=== PATIENT | male | born 1965 | race African-American/Black ===

== ENCOUNTER 2020-07-31 11:36 | Inpatient (IN) | payer OTHER ==
--- NOTE | 2020-07-31 12:12 | BHS.RME ---
Substance Use & Tx History - Substance Use History Alcohol Substance amount: 6 pack x 24 ounce cans Frequency of use: Daily Substance route: Oral Date of Last Use: 07/29/20 Cocaine-Crack Substance amount: $100 Frequency of use: Daily Substance route: Smoking Date of Last Use: 07/30/20 Nicotine Substance amount: 1/2 pack Frequency of use: Daily Substance route: Smoking Date of Last Use: 07/31/20 - Last Treatment Date of last treatment: 2013 Where was last treatment: Detox Physical/Psych/Mental Status - Behavior General Behavior: Increased activity (restlessness, agitation) Eye Contact: Normal - Cooperativeness Cooperativeness: Cooperative - Thinking Thought Processes: Tight Thought content: Future oriented - Physical Health Problems Is patient presently having any pain?: No Does patient presently have any injuries (include location): No Does patient currently have a fever: No CIWA Nausea/Vomitin-Mild Nausea/No Vomiting Muscle Tremors: 3 Anxiety: 3 Agitation: 3 Paroxysmal Sweats: 2 Orientation: 0-Oriented Tacttile Disturbances: 0-None Auditory Disturbances: 0-None Visual Disturbances: 0-None Headache: 0-None Present CIWA-Ar Total Score: 12
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
[2020-07-31 12:33] VITALS: BMI 16.7
[2020-07-31] MEDS ORDERED: METHOCARBAMOL 500 MG TABLET PO PRN (12:36)
[2020-07-31] MEDS ORDERED: MENTHOL/PHENOL 1 EACH UD MM PRN (12:36)
[2020-07-31] MEDS ORDERED: MAGNESIUM HYDROX 2400MG/30ML ORAL SUSPENSION 30 ML CUP PO PRN (12:36)
[2020-07-31] MEDS ORDERED: BISMUTH SUBSALICYLATE 524 MG/30 ML UD PO PRN (12:36)
[2020-07-31] MEDS ORDERED: ONDANSETRON *ODT* 4 MG TABLET SL PRN (12:36)
[2020-07-31] MEDS ORDERED: chlordiazePOXIDE HCL 25 MG CAPSULE PO PRN (12:36)
[2020-07-31] MEDS ORDERED: ACETAMINOPHEN 325 MG TABLET (FP) PO PRN ×2 (12:36)
[2020-07-31] MEDS ORDERED: MAG HYDROX/AL HYDROX/SIMETH 30 ML UNIT-DOSE CUP PO PRN (12:36)
[2020-07-31] MEDS ORDERED: NICOTINE POLACRILEX 2 MG GUM BUC PRN (12:36)
[2020-07-31] MEDS ORDERED: IBUPROFEN 400 MG TABLET (FP) PO PRN (12:36)
[2020-07-31] MEDS ORDERED: MAGNESIUM CITRATE 300 ML BOTTLE PO PRN (12:36)
[2020-07-31] MEDS: PRENATAL VITAMINS W/ FOLIC ACID TABLET (FP) PO SCH (14:19)
[2020-07-31] MEDS: NICOTINE 7 MG/24 HOURS TOPICAL PATCH TD SCH (14:19)
[2020-07-31] MEDS: chlordiazePOXIDE HCL 25 MG CAPSULE PO SCH ×3 (14:19→22:28)
[2020-07-31] MEDS: hydrOXYzine PAMOATE 25 MG CAPSULE (FP) PO SCH ×3 (14:20→22:28)
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
[2020-07-31] MEDS ORDERED: QUEtiapine FUMARATE 50 MG TABLET ONE (21:12)
[2020-07-31] MEDS ORDERED: QUEtiapine FUMARATE 200 MG TABLET ONE (21:12)
[2020-07-31] MEDS ORDERED: QUETIAPINE FUMARATE 200 MG, QUETIAPINE FUMARATE 50 MG PO SCH (22:00)
[2020-07-31] MEDS ORDERED: QUEtiapine FUMARATE 200 MG TABLET PO SCH ×2 (22:00)
[2020-07-31] MEDS: MELATONIN 5 MG TABLETS PO SCH (22:28)
[2020-07-31] MEDS: MIRTAZAPINE 15 MG TABLET (FP) PO SCH (22:28)
[2020-07-31] MEDS: THIAMINE HCL 100 MG TABLET (FP) PO SCH (22:28)
[2020-08-01] MEDS: hydrOXYzine PAMOATE 25 MG CAPSULE (FP) PO SCH ×3 (06:24→14:39)
[2020-08-01] MEDS: chlordiazePOXIDE HCL 25 MG CAPSULE PO SCH ×4 (06:24→22:38)
[2020-08-01 10:15] LABS: HEMATOCRIT 41.7 % (35.4-49); HEMOGLOBIN 13.7 GM/dL (11.7-16.9); MCHC 32.7 g/dl (32.0-35.9); MEAN CELL VOLUME 88.7 fl (80-96); MEAN PLT VOLUME 7.8 fl (7.5-11.1); PLATELET COUNT 132 K/MM3 (134-434); RDW 14.2 % (11.9-15.9); WHITE BLOOD COUNT 3.6 K/mm3 (4.0-10.0)
--- NOTE | 2020-08-01 10:18 | PN ---
S CIWA - CIWA Score Nausea/Vomitin-No Nausea/No Vomiting Muscle Tremors: 1-None Visible, but [place] Anxiety: 1-Mildly Anxious Agitation: 1-Slight > Activity Paroxysmal Sweats: No Perspiration Orientation: 0-Oriented Tacttile Disturbances: 1-Very Mild Itch/Numbness Auditory Disturbances: 0-None Visual Disturbances: 0-None Headache: 2-Mild CIWA-Ar Total Score: 6 BHS Progress Note (SOAP) Subjective: alert,feel weak,tired and weak,poor appetite,anxious Objective: 08/01/20 13:00 Vital Signs Temperature 97.9 F 08/01/20 08:39 Pulse Rate 58 L 08/01/20 08:39 Respiratory Rate 18 08/01/20 08:39 Blood Pressure 104/71 08/01/20 08:39 O2 Sat by Pulse Oximetry (%) 97 08/01/20 06:40 08/01/20 13:00 Laboratory Last Values WBC 3.6 K/mm3 (4.0-10.0) L 08/01/20 07:00 RBC 4.70 M/mm3 (4.00-5.60) 08/01/20 07:00 Hgb 13.7 GM/dL (11.7-16.9) 08/01/20 07:00 Hct 41.7 % (35.4-49) D 08/01/20 07:00 MCV 88.7 fl (80-96) 08/01/20 07:00 MCH 29.0 pg (25.7-33.7) 08/01/20 07:00 MCHC 32.7 g/dl (32.0-35.9) 08/01/20 07:00 RDW 14.2 % (11.9-15.9) 08/01/20 07:00 Plt Count 132 K/MM3 (134-434) L D 08/01/20 07:00 MPV 7.8 fl (7.5-11.1) D 08/01/20 07:00 Sodium 142 mmol/L (136-145) 08/01/20 07:00 Potassium 4.1 mmol/L (3.5-5.1) 08/01/20 07:00 Chloride 113 mmol/L (98-107) H 08/01/20 07:00 Carbon Dioxide 23 mmol/L (21-32) 08/01/20 07:00 Anion Gap 5 MMOL/L (8-16) L 08/01/20 07:00 BUN 24.9 mg/dL (7-18) H 08/01/20 07:00 Creatinine 1.7 mg/dL (0.55-1.3) H 08/01/20 07:00 Est GFR (CKD-EPI)AfAm 51.11 08/01/20 07:00 Est GFR (CKD-EPI)NonAf 44.10 08/01/20 07:00 POC Glucometer 199 UNITS (80-120) 08/01/20 06:34 Random Glucose 185 mg/dL (74-106) H 08/01/20 07:00 Calcium 9.0 mg/dL (8.5-10.1) 08/01/20 07:00 Total Bilirubin 0.4 mg/dL (0.2-1) 08/01/20 07:00 AST 35 U/L (15-37) 08/01/20 07:00 ALT 50 U/L (13-61) 08/01/20 07:00 Alkaline Phosphatase 122 U/L (45-117) H 08/01/20 07:00 Total Protein 7.1 g/dl (6.4-8.2) 08/01/20 07:00 Albumin 3.1 g/dl (3.4-5.0) L 08/01/20 07:00 Syphilis Serology Reactive (NONREACTIVE) A* 07/31/20 07:00 Assessment: 08/01/20 13:05 withdrawal symptom Plan: continue detox librium regimen,continue detox librium regimen,patient pharmacist called,patient never been on any seroquel any more, bgm monitoring ,nutritional support,close monitoring,wheelchair for ambulatory aid,will d/c seroquel
[2020-08-01 10:28] LABS: ALBUMIN 3.1 g/dl (3.4-5.0); BLOOD UREA NITROGEN 24.9 mg/dL (7-18); CREATININE 1.7 mg/dL (0.55-1.3); POTASSIUM 4.1 mmol/L (3.5-5.1)
[2020-08-01 10:31] LABS: BILIRUBIN,TOTAL 0.4 mg/dL (0.2-1); TOT PROT 7.1 g/dl (6.4-8.2)
[2020-08-01] MEDS: PRENATAL VITAMINS W/ FOLIC ACID TABLET (FP) PO SCH (10:41)
[2020-08-01] MEDS: NICOTINE 7 MG/24 HOURS TOPICAL PATCH TD SCH (10:41)
[2020-08-01] MEDS: SULFAMETHOXAZOLE/TRIMETHOPRIM 800MG/160MG D.S. TABLET PO SCH (10:42)
[2020-08-01] MEDS: MELATONIN 5 MG TABLETS PO SCH (22:38)
[2020-08-01] MEDS: THIAMINE HCL 100 MG TABLET (FP) PO SCH (22:38)
[2020-08-01] MEDS: MIRTAZAPINE 15 MG TABLET (FP) PO SCH (22:38)
[2020-08-02] MEDS: chlordiazePOXIDE HCL 25 MG CAPSULE PO SCH ×4 (06:22→22:33)
[2020-08-02] MEDS ORDERED: INSULIN (NOVOLOG) ASPART 100 UNITS/ML 10ML VIAL SQ ONE (07:09)
--- NOTE | 2020-08-02 07:16 | PN ---
[facility] Progress Note Note: Patient's blood glucose level is B/S 265mg/dl Vital Signs Temperature 97.8 F 08/02/20 05:12 Pulse Rate 60 08/02/20 05:12 Respiratory Rate 16 08/02/20 05:12 Blood Pressure 104/60 08/02/20 05:12 O2 Sat by Pulse Oximetry (%) 95 08/02/20 05:12 Glucose Results-Entire Visit 08/01/20 07:00 Random Glucose 185 mg/dL H mg/dL (74-106) BGM Results Entire Visit 07/31/20 08/01/20 08/01/20 12:57 06:34 16:26 POC Glucometer 195 UNITS UNITS 199 UNITS UNITS 190 UNITS UNITS (80-120) (80-120) (80-120) 08/01/20 08/02/20 21:04 06:47 POC Glucometer 278 UNITS UNITS 265 UNITS UNITS (80-120) (80-120) Action: Insulin Novolog 4 units SQ ordered
[2020-08-02] MEDS: DARUNAVIR 800 MG/COBICISTAT 150MG TABLET PO SCH (08:23)
[2020-08-02] MEDS: DOLUTEGRAVIR SODIUM 50 MG TABLET (NON-FORMULARY) PO SCH (08:24)
--- NOTE | 2020-08-02 09:38 | PN ---
[facility] CIWA - CIWA Score Nausea/Vomitin-Mild Nausea/No Vomiting Muscle Tremors: 2 Anxiety: 2 Agitation: 2 Paroxysmal Sweats: No Perspiration Orientation: 0-Oriented Tacttile Disturbances: 1-Very Mild Itch/Numbness Auditory Disturbances: 0-None Visual Disturbances: 0-None Headache: 2-Mild CIWA-Ar Total Score: 10 S Progress Note (SOAP) Subjective: alert,oriented x 3,pain in the body,nausea,no vomiting,interrupted sleep,aching pain Objective: 08/02/20 10:18 Vital Signs Temperature 97.1 F L 08/02/20 08:28 Pulse Rate 87 08/02/20 08:28 Respiratory Rate 18 08/02/20 08:28 Blood Pressure 117/76 08/02/20 08:28 O2 Sat by Pulse Oximetry (%) 95 08/02/20 08:28 Laboratory Last Values WBC 3.6 K/mm3 (4.0-10.0) L 08/01/20 07:00 RBC 4.70 M/mm3 (4.00-5.60) 08/01/20 07:00 Hgb 13.7 GM/dL (11.7-16.9) 08/01/20 07:00 Hct 41.7 % (35.4-49) D 08/01/20 07:00 MCV 88.7 fl (80-96) 08/01/20 07:00 MCH 29.0 pg (25.7-33.7) 08/01/20 07:00 MCHC 32.7 g/dl (32.0-35.9) 08/01/20 07:00 RDW 14.2 % (11.9-15.9) 08/01/20 07:00 Plt Count 132 K/MM3 (134-434) L D 08/01/20 07:00 MPV 7.8 fl (7.5-11.1) D 08/01/20 07:00 Sodium 142 mmol/L (136-145) 08/01/20 07:00 Potassium 4.1 mmol/L (3.5-5.1) 08/01/20 07:00 Chloride 113 mmol/L (98-107) H 08/01/20 07:00 Carbon Dioxide 23 mmol/L (21-32) 08/01/20 07:00 Anion Gap 5 MMOL/L (8-16) L 08/01/20 07:00 BUN 24.9 mg/dL (7-18) H 08/01/20 07:00 Creatinine 1.7 mg/dL (0.55-1.3) H 08/01/20 07:00 Est GFR (CKD-EPI)AfAm 51.11 08/01/20 07:00 Est GFR (CKD-EPI)NonAf 44.10 08/01/20 07:00 POC Glucometer 265 UNITS (80-120) 08/02/20 06:47 Random Glucose 185 mg/dL (74-106) H 08/01/20 07:00 Calcium 9.0 mg/dL (8.5-10.1) 08/01/20 07:00 Total Bilirubin 0.4 mg/dL (0.2-1) 08/01/20 07:00 AST 35 U/L (15-37) 08/01/20 07:00 ALT 50 U/L (13-61) 08/01/20 07:00 Alkaline Phosphatase 122 U/L (45-117) H 08/01/20 07:00 Total Protein 7.1 g/dl (6.4-8.2) 08/01/20 07:00 Albumin 3.1 g/dl (3.4-5.0) L 08/01/20 07:00 Syphilis Serology Reactive (NONREACTIVE) A* 07/31/20 07:00 RPR Titer Reactive 1:1 (NONREACTIVE) H D 07/31/20 07:00 COVID-19 ([place]) Not detected (Not Detected) 07/31/20 13:20 08/02/20 13:37 patient was treated for syphilis before in the past Assessment: 08/02/20 10:19 withdrawal symptom,continue detox librium regimen,bgm monitoring achs with insulin coverage sliding scale Plan: continue detox librium regimen,bgm monitoring with insulin coverage sliding scale
[2020-08-02] MEDS: PRENATAL VITAMINS W/ FOLIC ACID TABLET (FP) PO SCH (10:09)
[2020-08-02] MEDS: NICOTINE 7 MG/24 HOURS TOPICAL PATCH TD SCH (10:09)
[2020-08-02] MEDS: SULFAMETHOXAZOLE/TRIMETHOPRIM 800MG/160MG D.S. TABLET PO SCH (10:09)
[2020-08-02] MEDS: INSULIN (NOVOLOG) ASPART 100 UNITS/ML 10ML VIAL SQ SCH ×3 (11:47→22:33)
[2020-08-02] MEDS ORDERED: INSULIN SLIDING SCALE (NOVOLOG) 1 VIAL SQ ONE (21:28)
[2020-08-02] MEDS: MELATONIN 5 MG TABLETS PO SCH (22:32)
[2020-08-02] MEDS: MIRTAZAPINE 15 MG TABLET (FP) PO SCH (22:32)
[2020-08-02] MEDS: THIAMINE HCL 100 MG TABLET (FP) PO SCH (22:36)
[2020-08-03] MEDS ORDERED: chlordiazePOXIDE HCL 10 MG CAPSULE PO PRN
[2020-08-03] MEDS: chlordiazePOXIDE HCL 10 MG CAPSULE PO SCH ×4 (06:00→22:47)
[2020-08-03] MEDS: DARUNAVIR 800 MG/COBICISTAT 150MG TABLET PO SCH (07:41)
[2020-08-03] MEDS: INSULIN (NOVOLOG) ASPART 100 UNITS/ML 10ML VIAL SQ SCH ×4 (07:42→22:47)
[2020-08-03] MEDS: DOLUTEGRAVIR SODIUM 50 MG TABLET (NON-FORMULARY) PO SCH (07:42)
[2020-08-03] MEDS ORDERED: INSULIN SLIDING SCALE (NOVOLOG) 1 VIAL SQ ONE ×5 (07:45→22:52)
[2020-08-03] MEDS: NICOTINE 7 MG/24 HOURS TOPICAL PATCH TD SCH (10:48)
[2020-08-03] MEDS: SULFAMETHOXAZOLE/TRIMETHOPRIM 800MG/160MG D.S. TABLET PO SCH (10:48)
[2020-08-03] MEDS: PRENATAL VITAMINS W/ FOLIC ACID TABLET (FP) PO SCH (10:49)
--- NOTE | 2020-08-03 11:20 | PN ---
S CIWA - CIWA Score Nausea/Vomitin-No Nausea/No Vomiting Muscle Tremors: None Anxiety: 2 Agitation: 1-Slight > Activity Paroxysmal Sweats: 2 Orientation: 0-Oriented Tacttile Disturbances: 0-None Auditory Disturbances: 0-None Visual Disturbances: 0-None Headache: 2-Mild CIWA-Ar Total Score: 7 BHS Progress Note (SOAP) Subjective: c/o sweats, anxiety, and headache. Objective: 08/03/20 11:18 Vital Signs 08/03/20 08/03/20 07:01 08:35 Temperature 97.2 F L 97.1 F L Pulse Rate 60 66 Respiratory 18 18 Rate Blood Pressure 100/62 103/60 O2 Sat by Pulse 97 Oximetry (%) Assessment: 08/03/20 11:18 AOX3, in no acute respiratory distress. Full ROM, ambulating in the unit. Withdrawal symptoms. Plan: continue detox.
[2020-08-03] MEDS: MELATONIN 5 MG TABLETS PO SCH (22:47)
[2020-08-03] MEDS: THIAMINE HCL 100 MG TABLET (FP) PO SCH (22:47)
[2020-08-03] MEDS: MIRTAZAPINE 15 MG TABLET (FP) PO SCH (22:47)
[2020-08-04] MEDS ORDERED: chlordiazePOXIDE HCL 10 MG CAPSULE PO SCH (05:00)
[2020-08-04 06:20] VITALS: TEMP 98
[2020-08-04] MEDS: DOLUTEGRAVIR SODIUM 50 MG TABLET (NON-FORMULARY) PO SCH (07:07)
[2020-08-04] MEDS: INSULIN (NOVOLOG) ASPART 100 UNITS/ML 10ML VIAL SQ SCH ×2 (07:07→11:16)
[2020-08-04] MEDS: DARUNAVIR 800 MG/COBICISTAT 150MG TABLET PO SCH (07:07)
[2020-08-04] MEDS ORDERED: INSULIN SLIDING SCALE (NOVOLOG) 1 VIAL SQ ONE ×2 (07:45→11:16)
[2020-08-04] MEDS: SULFAMETHOXAZOLE/TRIMETHOPRIM 800MG/160MG D.S. TABLET PO SCH (10:50)
[2020-08-04] MEDS: NICOTINE 7 MG/24 HOURS TOPICAL PATCH TD SCH (10:55)
[2020-08-04] MEDS: PRENATAL VITAMINS W/ FOLIC ACID TABLET (FP) PO SCH (10:55)
--- NOTE | 2020-08-04 12:12 | PN ---
[facility] CIWA - CIWA Score Nausea/Vomitin-Mild Nausea/No Vomiting Muscle Tremors: 1-None Visible, but [place] Anxiety: 1-Mildly Anxious Agitation: 1-Slight > Activity Paroxysmal Sweats: No Perspiration Orientation: 0-Oriented Tacttile Disturbances: 0-None Auditory Disturbances: 0-None Visual Disturbances: 1-Very Mild Sensitivity Headache: 0-None Present CIWA-Ar Total Score: 5 BHS Progress Note (SOAP) Subjective: 54 years old male was admitted on 07/31/20 for alcohol withdrawal sx management treating [facility] detox regiment feels better today encourage mr monzon to discuss aftercare with staff mr monzon prefers to go to [facility] Objective: 08/04/20 13:34 Vital Signs - 24 hr 08/03/20 08/03/20 08/04/20 17:12 20:59 06:19 Temperature 97.7 F 97.1 F L 98.0 F Pulse Rate 78 88 66 Respiratory 16 16 16 Rate Blood Pressure 106/66 106/64 102/68 O2 Sat by Pulse 99 97 Oximetry (%) 08/04/20 08:47 Temperature 98.0 F Pulse Rate 70 Respiratory 18 Rate Blood Pressure 98/57 L O2 Sat by Pulse Oximetry (%) Laboratory Tests 07/31/20 07/31/20 07/31/20 07:00 07:00 12:57 WBC RBC Hgb Hct MCV MCH MCHC RDW Plt Count MPV Sodium Potassium Chloride Carbon Dioxide Anion Gap BUN Creatinine Est GFR (CKD-EPI)AfAm Est GFR (CKD-EPI)NonAf POC Glucometer 195 Random Glucose Calcium Total Bilirubin AST ALT Alkaline Phosphatase Total Protein Albumin Syphilis Serology Reactive A* RPR Titer Reactive 1:1 H D COVID-19 ([place]) 07/31/20 08/01/20 08/01/20 13:20 06:34 07:00 WBC 3.6 L RBC 4.70 Hgb 13.7 Hct 41.7 D MCV 88.7 MCH 29.0 MCHC 32.7 RDW 14.2 Plt Count 132 L D MPV 7.8 D Sodium Potassium Chloride Carbon Dioxide Anion Gap BUN Creatinine Est GFR (CKD-EPI)AfAm Est GFR (CKD-EPI)NonAf POC Glucometer 199 Random Glucose Calcium Total Bilirubin AST ALT Alkaline Phosphatase Total Protein Albumin Syphilis Serology RPR Titer COVID-19 ([place]) Not detected 08/01/20 08/01/20 08/01/20 07:00 16:26 21:04 WBC RBC Hgb Hct MCV MCH MCHC RDW Plt Count MPV Sodium 142 Potassium 4.1 Chloride 113 H Carbon Dioxide 23 Anion Gap 5 L BUN 24.9 H Creatinine 1.7 H Est GFR (CKD-EPI)AfAm 51.11 Est GFR (CKD-EPI)NonAf 44.10 POC Glucometer 190 278 Random Glucose 185 H Calcium 9.0 Total Bilirubin 0.4 AST 35 ALT 50 Alkaline Phosphatase 122 H Total Protein 7.1 Albumin 3.1 L Syphilis Serology RPR Titer COVID-19 ([place]) 08/02/20 08/02/20 08/02/20 06:47 11:20 16:28 WBC RBC Hgb Hct MCV MCH MCHC RDW Plt Count MPV Sodium Potassium Chloride Carbon Dioxide Anion Gap BUN Creatinine Est GFR (CKD-EPI)AfAm Est GFR (CKD-EPI)NonAf POC Glucometer 265 246 454 Random Glucose Calcium Total Bilirubin AST ALT Alkaline Phosphatase Total Protein Albumin Syphilis Serology RPR Titer COVID-19 ([place]) 08/02/20 08/03/20 08/03/20 21:21 06:16 10:53 WBC RBC Hgb Hct MCV MCH MCHC RDW Plt Count MPV Sodium Potassium Chloride Carbon Dioxide Anion Gap BUN Creatinine Est GFR (CKD-EPI)AfAm Est GFR (CKD-EPI)NonAf POC Glucometer 282 294 132 Random Glucose Calcium Total Bilirubin AST ALT Alkaline Phosphatase Total Protein Albumin Syphilis Serology RPR Titer COVID-19 ([place]) 08/03/20 08/03/20 08/03/20 11:13 16:18 21:23 WBC RBC Hgb Hct MCV MCH MCHC RDW Plt Count MPV Sodium Potassium Chloride Carbon Dioxide Anion Gap BUN Creatinine Est GFR (CKD-EPI)AfAm Est GFR (CKD-EPI)NonAf POC Glucometer 395 457 403 Random Glucose Calcium Total Bilirubin AST ALT Alkaline Phosphatase Total Protein Albumin Syphilis Serology RPR Titer COVID-19 ([place]) 08/04/20 08/04/20 06:00 11:00 WBC RBC Hgb Hct MCV MCH MCHC RDW Plt Count MPV Sodium Potassium Chloride Carbon Dioxide Anion Gap BUN Creatinine Est GFR (CKD-EPI)AfAm Est GFR (CKD-EPI)NonAf POC Glucometer 269 372 Random Glucose Calcium Total Bilirubin AST ALT Alkaline Phosphatase Total Protein Albumin Syphilis Serology RPR Titer COVID-19 ([place]) lab noted Assessment: 08/04/20 13:35 alcohol withdrawal Plan: librium regiment
[2020-08-04 13:38] VITALS: BP 136/77; PULSE 78
--- NOTE | 2020-08-04 18:50 | DS ---
[facility] Detox Discharge Summary Admission Date: 07/31/20 Discharge Date: 08/04/20 - History Present History: Alcohol Dependence, Cocaine Dependence Pertinent Past History: Positive HIV, CAD w/ PPM, colostomy, DM, HTN - Physical Exam Results Vital Signs: Vital Signs Temperature 98.0 F 08/04/20 12:45 Pulse Rate 78 08/04/20 12:45 Respiratory Rate 18 08/04/20 12:45 Blood Pressure 136/77 08/04/20 12:45 O2 Sat by Pulse Oximetry (%) 100 08/04/20 12:45 Pertinent Admission Physical Exam Findings: Withdrawal sx Not examined by inspector automatic typewriter Laboratory Last Values WBC 3.6 K/mm3 (4.0-10.0) L 08/01/20 07:00 RBC 4.70 M/mm3 (4.00-5.60) 08/01/20 07:00 Hgb 13.7 GM/dL (11.7-16.9) 08/01/20 07:00 Hct 41.7 % (35.4-49) D 08/01/20 07:00 MCV 88.7 fl (80-96) 08/01/20 07:00 MCH 29.0 pg (25.7-33.7) 08/01/20 07:00 MCHC 32.7 g/dl (32.0-35.9) 08/01/20 07:00 RDW 14.2 % (11.9-15.9) 08/01/20 07:00 Plt Count 132 K/MM3 (134-434) L D 08/01/20 07:00 MPV 7.8 fl (7.5-11.1) D 08/01/20 07:00 Sodium 142 mmol/L (136-145) 08/01/20 07:00 Potassium 4.1 mmol/L (3.5-5.1) 08/01/20 07:00 Chloride 113 mmol/L (98-107) H 08/01/20 07:00 Carbon Dioxide 23 mmol/L (21-32) 08/01/20 07:00 Anion Gap 5 MMOL/L (8-16) L 08/01/20 07:00 BUN 24.9 mg/dL (7-18) H 08/01/20 07:00 Creatinine 1.7 mg/dL (0.55-1.3) H 08/01/20 07:00 Est GFR (CKD-EPI)AfAm 51.11 08/01/20 07:00 Est GFR (CKD-EPI)NonAf 44.10 08/01/20 07:00 POC Glucometer 372 UNITS (80-120) 08/04/20 11:00 Random Glucose 185 mg/dL (74-106) H 08/01/20 07:00 Calcium 9.0 mg/dL (8.5-10.1) 08/01/20 07:00 Total Bilirubin 0.4 mg/dL (0.2-1) 08/01/20 07:00 AST 35 U/L (15-37) 08/01/20 07:00 ALT 50 U/L (13-61) 08/01/20 07:00 Alkaline Phosphatase 122 U/L (45-117) H 08/01/20 07:00 Total Protein 7.1 g/dl (6.4-8.2) 08/01/20 07:00 Albumin 3.1 g/dl (3.4-5.0) L 08/01/20 07:00 Syphilis Serology Reactive (NONREACTIVE) A* 07/31/20 07:00 RPR Titer Reactive 1:1 (NONREACTIVE) H D 07/31/20 07:00 COVID-19 ([place]) Not detected (Not Detected) 07/31/20 13:20 - Treatment Hospital Course: Detox Protocol Followed, Detoxed Safely, Responded well - Medication Discharge Medications: Ambulatory Orders Insulin (Levemir) [Levemir Flexpen -] 12 units SQ BID 12/01/13 Sulfamethoxazole/Trimethoprim [Bactrim DS -] 1 tab PO DAILY 12/01/13 Quetiapine Fumarate [Seroquel -] 50 mg PO HS #30 tablet 12/02/13 Darunavir/Cobicistat [Prezcobix 800 mg-150 mg Tablet] 1 each PO DAILY 07/31/20 Dolutegravir Sodium [Tivicay] 50 mg PO DAILY 07/31/20 - Diagnosis (1) Alcohol dependence, uncomplicated Status: Chronic (2) Cocaine dependence Status: Chronic Qualifiers: Substance use status: uncomplicated Qualified Code(s): F14.20 - Cocaine dependence, uncomplicated (3) AIDS (acquired immune deficiency syndrome) Status: Chronic (4) Colostomy in place Status: Chronic (5) Diabetes mellitus type 2 in nonobese Status: Chronic (6) Nicotine dependence Status: Chronic Qualifiers: Nicotine product type: cigarettes Substance use status: uncomplicated Qualified Code(s): F17.210 - Nicotine dependence, cigarettes, uncomplicated - AMA Did Patient Leave Against Medical Advice: No (Patient requested early discharge)
[2020-08-05] MEDS ORDERED: chlordiazePOXIDE HCL 10 MG CAPSULE PO ONE (05:00)
== END 2020-08-04 16:48 | disposition home or self-care (01) | DRG 774 ==
LOC: YASAS 11:36 → Y3N 13:04
PROVIDERS: ADMIT Allergy & Immunology; ATTEND Allergy & Immunology
PROC: HZ2ZZZZ Detoxification Services for Substance Abuse Treatment (ICD-10-PCS; principal; 2020-07-31)
DX: F10.230 Alcohol dependence with withdrawal, uncomplicated (principal); F14.20 Cocaine dependence, uncomplicated; F17.210 Nicotine dependence, cigarettes, uncomplicated; F31.9 Bipolar disorder, unspecified; F19.282 Other psychoactive substance dependence with psychoactive substance-induced sleep disorder; B20 Human immunodeficiency virus [HIV] disease; I25.10 Atherosclerotic heart disease of native coronary artery without angina pectoris; I10 Essential (primary) hypertension; E11.9 Type 2 diabetes mellitus without complications; Z79.4 Long term (current) use of insulin; Z95.0 Presence of cardiac pacemaker; Z85.038 Personal history of other malignant neoplasm of large intestine; Z93.3 Colostomy status
CPT/HCPCS: 36415; 80053; 82962; 85027; 86593; 86780; U0003